=== PATIENT | male | born 1965 | race Caucasian/White ===

== ENCOUNTER 2017-06-10 13:37 | Emergency (ER) | payer OTHER ==
[2017-06-10] MEDS ORDERED: Sodium Chloride 0.9% 1,000 ML ONE (13:57)
[2017-06-10] MEDS ORDERED: Adenosine 6 MG/2 ML SDV ONE (13:57)
[2017-06-10] MEDS ORDERED: Adenosine 12 MG/4 ML SDV ONE (13:57)
[2017-06-10] MEDS ORDERED: Sodium Chloride 0.9% 500 ML IV ONE (14:03)
[2017-06-10] MEDS ORDERED: Sodium Chloride 0.9% 10 ML Syringe FLUSH PRN (14:03)
[2017-06-10] MEDS ORDERED: Metoprolol Tartrate 5 MG/5 ML SDV IVPUSH ONE ×5 (14:03→15:57)
[2017-06-10] MEDS ORDERED: Metoprolol Tartrate 50 MG Tab PO ONE ×2 (14:58→16:09)
--- NOTE | 2017-06-10 15:01 | EDM.PDOC ---
ED HPI GENERAL MEDICAL PROBLEM - General Chief Complaint: Cardiovascular Problem Stated Complaint: AFIB Time Seen by Provider: 06/10/17 13:43 Source of Information: Reports: Patient, RN Notes Reviewed - History of Present Illness INITIAL COMMENTS - FREE TEXT/NARRATIVE: 51-year-old male with onset of palpitations this past afternoon a couple of hours ago. Does have history of 4 prior episodes of atrial fib, to him this feels similar. He states that his chest just feels "different". He does feel very mildly dizzy when standing or walking. No chest pain or difficulty breathing. He states his other episodes have all come from inverted within about 6 several hours up to closer to 24 hours. He did require being in the hospital on one occasion many years ago. He does take a low dose of metoprolol once daily. He states he has not had an episode of atrial fib now for about 1-1/ 2 years. - Related Data Allergies Allergy/AdvReac Type Severity Reaction Status Date / Time onion Allergy Nausea and Uncoded 06/10/17 13:42 Vomiting ED ROS GENERAL - Review of Systems Review Of Systems: See Below Constitutional: Reports: No Symptoms HEENT: Reports: No Symptoms Respiratory: Denies: Shortness of Breath Cardiovascular: Reports: Palpitations (Mild). Denies: Chest Pain GI/Abdominal: Denies: Abdominal Pain, Nausea, Vomiting Musculoskeletal: Denies: Neck Pain, Shoulder Pain, Arm Pain Neurological: Reports: Dizziness (Mild). Denies: Trouble Speaking, Difficulty Walking, Weakness ED EXAM, GENERAL - Physical Exam Exam: See Below General Appearance: Alert, No Apparent Distress Throat/Mouth: Normal Inspection, Normal Oropharynx Head: No: Facial Swelling Neck: Supple, Full Range of Motion Respiratory/Chest: No Respiratory Distress, Lungs Clear, Normal Breath Sounds Cardiovascular: Tachycardia, Irregularly Irregular GI/Abdominal: Soft, Non-Tender Extremities: Normal Inspection, Normal Range of Motion. No: Leg Pain Neurological: Alert, Oriented, No Motor/Sensory Deficits Skin Exam: Warm, Dry, Normal Color EKG INTERPRETATION EKG Date: 06/10/17 Rhythm: A-Fib Rate (Beats/Min): 132 [place]: Normal QRS: Normal ST-T: Normal Course - Vital Signs Last Recorded V/S: Last Vital Signs Temp 97.7 F 06/10/17 13:42 Pulse 107 H 06/10/17 16:29 Resp 15 06/10/17 13:42 BP 119/90 06/10/17 16:29 Pulse Ox 96 06/10/17 13:42 - Orders/Labs/Meds Orders: Active Orders 24 hr Category Date Time Status EKG 12 Lead [EKG Documentation Completion] [RC] STAT Care 06/10/17 14:03 Active Peripheral IV Care [RC] . DIRECTED Care 06/10/17 14:03 Active Peripheral IV Insertion Adult [OM.PC] Stat Oth 06/10/17 14:03 Ordered Labs: Laboratory Tests 06/10/17 06/10/17 Range/Units 13:46 13:46 WBC 8.45 (4.23-9.07) K/mm3 RBC 5.36 (4.63-6.08) M/mm3 Hgb 15.2 (13.7-17.5) gm/L Hct 43.7 (40.1-51.0) % MCV 81.5 (79.0-92.2) fl MCH 28.4 (25.7-32.2) pg MCHC 34.8 (32.2-35.5) g/dl RDW Std Deviation 39.3 (35.1-43.9) fL Plt Count 305 (163-337) K/mm3 MPV 10.3 (9.4-12.3) fl Neut % (Auto) 73.5 H (34.0-67.9) % Lymph % (Auto) 18.8 L (21.8-53.1) % Moca % (Auto) 6.5 (5.3-12.2) % Eos % (Auto) 0.6 L (0.8-7.0) Baso % (Auto) 0.1 (0.1-1.2) % Neut # (Auto) 6.21 H (1.78-5.38) K/mm3 Lymph # (Auto) 1.59 (1.32-3.57) K/mm3 [place]oca # (Auto) 0.55 (0.30-0.82) K/mm3 Eos # (Auto) 0.05 (0.04-0.54) K/mm3 Baso # (Auto) 0.01 (0.01-0.08) K/mm3 Sodium 139 (136-145) mEq/L Potassium 3.9 (3.5-5.1) mEq/L Chloride 101 (98-107) mEq/L Carbon Dioxide 28 (21-32) mEq/L Anion Gap 13.9 (5-15) BUN 15 (7-18) mg/dL Creatinine 1.2 (0.7-1.3) mg/dL Est Cr Clr Drug Dosing 76.89 mL/min Estimated GFR (MDRD) > 60 (>60) mL/min BUN/Creatinine Ratio 12.5 L (14-18) Glucose 200 H (74-106) mg/dL Calcium 8.9 (8.5-10.1) mg/dL Total Bilirubin 0.9 (0.2-1.0) mg/dL AST TNP ALT TNP Alkaline Phosphatase 101 (46-116) U/L Total Protein 7.7 (6.4-8.2) g/dl Albumin 4.0 (3.4-5.0) g/dl Globulin 3.7 gm/dL Albumin/Globulin Ratio 1.1 (1-2) Meds: Medications Discontinued Medications Generic Name Dose Route Start Last Admin Trade Name Freq PRN Reason Stop Dose Admin Adenosine Confirm 06/10/17 13:57 06/10/17 14:13 Adenocard Administered 06/10/17 13:58 Not Given Dose 6 mg .ROUTE .STK-MED ONE Adenosine Confirm 06/10/17 13:57 06/10/17 14:13 Adenocard Administered 06/10/17 13:58 Not Given Dose 12 mg .ROUTE .STK-MED ONE Sodium Chloride Confirm 06/10/17 13:57 06/10/17 14:13 Normal Saline Administered 06/10/17 13:58 Not Given Dose 1,000 mls @ as directed .ROUTE .STK-MED ONE Sodium Chloride 500 mls @ 999 mls/hr 06/10/17 14:03 06/10/17 14:08 Normal Saline IV 06/10/17 14:33 999 mls/hr .BOLUS ONE Administration Metoprolol Tartrate 5 mg 06/10/17 14:03 06/10/17 14:08 Lopressor IVPUSH 06/10/17 14:04 5 mg ONETIME ONE Administration Metoprolol Tartrate 5 mg 06/10/17 14:31 06/10/17 14:37 Lopressor IVPUSH 06/10/17 14:32 5 mg ONETIME ONE Administration Metoprolol Tartrate 5 mg 06/10/17 14:55 06/10/17 15:03 Lopressor IVPUSH 06/10/17 14:56 5 mg ONETIME ONE Administration Metoprolol Tartrate 5 mg 06/10/17 14:58 06/10/17 15:28 Lopressor IVPUSH 06/10/17 14:59 Not Given ONETIME ONE Metoprolol Tartrate 50 mg 06/10/17 14:58 06/10/17 15:28 Lopressor PO 06/10/17 14:59 50 mg ONETIME ONE Administration Metoprolol Tartrate 5 mg 06/10/17 15:57 06/10/17 16:07 Lopressor IVPUSH 06/10/17 15:58 5 mg ONETIME ONE Administration Metoprolol Tartrate 50 mg 06/10/17 16:09 06/10/17 16:29 Lopressor PO 06/10/17 16:10 50 mg ONETIME ONE Administration Sodium Chloride 10 ml 06/10/17 14:03 06/10/17 14:13 Saline Flush FLUSH 10 ml ASDIRECTED PRN Administration Keep Vein Open - Re-Assessments/Exams Free Text/Narrative Re-Assessment/Exam: 06/10/17 19:28 Because patient was already on low-dose metoprolol I elected to continue working with her the metoprolol for rate control. His rate was somewhat slow to come down but after 5 mg IV 3 and 50 mg oral 2 his rate did come down to the 110-20 range. We also did give one further dose of Lopressor 5 mg IV about 2 hours after the initial dosages have been given. His rate was in the 90s to 110 the time of discharge. He felt much better. He felt comfortable to go home. I did discuss with Dr. Seo, his regular medical provider about close follow- up and she will be seeing him tomorrow morning around 8:15 to 8:30 AM. Discharge instructions as documented. Departure - Departure Time of Disposition: 03:25 Disposition: Home, Self-Care 01 Condition: Fair Clinical Impression: Atrial fibrillation with RVR Instructions: Atrial Fibrillation, [id number] Referrals: Landy Goldman MD [Primary Care Provider] - Forms: ED Department Discharge Additional Instructions: Check your blood pressure and heart rate around 8:00 this evening and then again around 9:30 to 10:00. Check with your blood pressure unit and then also check and record manual pulse as discussed. If your heart rate is still running 100 or higher than go ahead and take your normal evening 50 mg metoprolol dosage. Then take a morning dose of 50 mg metoprolol any time after [address] Sainz at clinic around 8:15/tomorrow morning. Return to ED as needed if symptoms worsening in any way. - My Orders Last 24 Hours: My Active Orders 06/10/17 14:03 EKG 12 Lead [EKG Documentation Completion] [RC] STAT Peripheral IV Care [RC] . DIRECTED Peripheral IV Insertion Adult [OM.PC] Stat - Assessment/Plan Last 24 Hours: My Active Orders 06/10/17 14:03 EKG 12 Lead [EKG Documentation Completion] [RC] STAT Peripheral IV Care [RC] . DIRECTED Peripheral IV Insertion Adult [OM.PC] Stat
== END 2017-06-10 17:57 | disposition home or self-care (01) ==
LOC: JD.ED 13:37
DX: I48.91 Unspecified atrial fibrillation (principal)
CPT/HCPCS: 36415; 80053; 85025; 93005; 96361; 96374; 96376; 99285; A9270; J7040; J7050; J3490